=== PATIENT | male | born 1980 | race Caucasian/White ===

== ENCOUNTER 2016-12-27 08:56 | Emergency (ER) | payer SELFPAY ==
[2016-12-27 09:16] VITALS: BP 140/70
[2016-12-27] MEDS ORDERED: cefTRIAXone VIAL(*) 1,000 MG VIAL IM ONE (10:23)
--- NOTE | 2016-12-27 10:23 | UC ---
Skin Complaint HPI - HPI Summary HPI Summary: PT IS TRYING TO COME OFF HEROIN AND IS USING SUBOXONE. IS ON THE WAITING LIST FOR REHAB SO UNABLE TO SECURE RX FOR SUBOXINE SO BUYS IT ON THE STREET. DID NOT HAVE ENOUGH FOR AN ALFRED DOSE SO INJECTED IN LEFT ARM 2 DAYS AGO. THAT NIGHT NOTICED LEFT AC REDNESS, SWELLING AND TENDERNESS. GETTING WORSE. NO FEVER. PAIN WITH ARM FLEXION. - History of Current Complaint Chief Complaint: UCWounds Time Seen by Provider: 12/27/16 09:55 Stated Complaint: INFECTION IN LT ARM Hx Obtained From: Patient Onset/Duration: Sudden Onset, Lasting Days, Still Present Timing: Constant Onset Severity: Moderate Current Severity: Moderate Pain Intensity: 8 Pain Scale Used: 0-10 Numeric Location: Discrete - LEFT AC FOSSA Character: Swelling, Pain, Redness, Raised Aggravating: Touch Alleviating: Nothing Associated Signs & Symptoms: Positive: Tenderness, Red Streaks. Negative: Fever , Drainage - Allergy/Home Medications Allergies/Adverse Reactions: Allergies Allergy/AdvReac Type Severity Reaction Status Date / Time No Known Allergies Allergy Verified 12/27/16 09:16 Home Medications: Home Medications Buprenorphine HCl-Naloxone HCl [Suboxone 8-2 mg] 4 mg PO DAILY 12/27/16 [ History Confirmed 12/27/16] Review of Systems Constitutional: Negative Skin: Other - ERYTHEMA AND INDURATION LEFT AC FOSSA Respiratory: Negative Cardiovascular: Negative Gastrointestinal: Negative All Other Systems Reviewed And Are Negative: Yes PMH/Surg Hx/FS Hx/Imm Hx Previously Healthy: Yes Endocrine History Of: Denies: Diabetes, Thyroid Disease, Hyperthyroidism, Hypothyroidism, Dyslipidemia Cardiovascular History Of: Denies: Cardiac Disorders, Hypertension, Pacemaker/ICD, Myocardial Infarction , Congestive Heart Failure, Atrial Fibrillation, Deep Vein Thrombosis, Bleeding Disorders Respiratory History Of: Denies: COPD, Asthma, Bronchitis, Pneumonia, Pulmonary Embolism GI/ History Of: Denies: Gastroesophageal Reflux, Ulcer, Gastrointestinal Bleed, Gall Bladder Disease, Kidney Stones, Diverticulitis, Renal Disease, Urosepsis Neurological History Of: Denies: TIA, CVA, Dementia, Seizures, Migraine Psychological History Of: Denies: Anxiety, Depression, Bipolar Disorder, Schizophrenia, Post Traumatic Stress Disorder Cancer History Of: Denies: Lung Cancer, Colorectal Cancer, Breast Cancer, Prostate Cancer, Cervical Cancer Other History Of: Negative For: HIV, Hepatitis B, Hepatitis C, Anticoagulant Therapy - Surgical History Surgical History: Yes Surgery Procedure, Year, and Place: 1999 - surgery on R small finger; Left arm absess wash out. - Family History Known Family History: Positive: Hypertension Negative: Cardiac Disease, Diabetes - Social History Alcohol Use: None Alcohol Amount: No ETOH since approx 2014 Substance Use Type: Heroin, Other Substance Use Comment - Amount & Last Used: IVDU; Suboxone only at this time Smoking Status (MU): Heavy Every Day Tobacco Smoker Type: Cigarettes Amount Used/How Often: 1/2 Household Exposure Type: Cigarettes - Immunization History Most Recent Influenza Vaccination: n/a Most Recent Tetanus Shot: unknown Most Recent Pneumonia Vaccination: none Physical Exam Triage Information Reviewed: Yes Appearance: Well-Appearing, No Pain Distress, Well-Nourished Vital Signs: Initial Vital Signs Temp 97.2 F 12/27/16 09:07 Pulse 85 12/27/16 09:07 Resp 16 12/27/16 09:07 BP 140/70 12/27/16 09:07 Pulse Ox 99 12/27/16 09:07 Vital Signs Reviewed: Yes Eyes: Positive: Conjunctiva Clear ENT: Positive: Hearing grossly normal Neck: Positive: Supple Respiratory: Positive: No respiratory distress, No accessory muscle use Cardiovascular: Positive: Pulses Normal Abdomen Description: Positive: Soft Musculoskeletal: Positive: No Edema Neurological: Positive: Alert Psychological: Positive: Age Appropriate Behavior Skin: Positive: Other - 7CM X 13CM AREA OF ERYTHEMA WITH 6CM X 3CM AREA OF INDURATION IN LEFT ANTECUBITAL FOSSA. NO FLUCTUANCE. MILDLY TENDER Course/Dx - Course Course Of Treatment: PT DECLINES ER TRANSFER. WANTS TO TRY OUTPT TREATMENT FIRST. 1G IM ROCEPHIN AND 2 WEEKS OF BACTRIM. WORK NOTE GIVEN AND ARM PUT IN SLING FOR COMFORT. PT WILL GO TO ER WITHOUT FAIL IF SX NOT IMPROVING OVER NEXT 48 HRS. - Diagnoses Provider Diagnoses: INJECTION SITE ABSCESS - LEFT AC FOSSA Discharge - Discharge Plan Condition: Stable Disposition: HOME Prescriptions: Sulfamethox/Trimethoprim DS* [Bactrim DS 800/160 TAB*] 2 tab PO BID #54 tab Patient Education Materials: Abscess (ED) Forms: *Work Release Referrals: Laureano Vicente, [employer] PROGRAMMER ANALYST [Primary Care Provider] - 3 Days Additional Instructions: YOU HAVE RECEIVED ROCEPHIN 1G IM AND STARTED ON A 2 WEEK COURSE OF BACTRIM. LOW THRESHOLD FOR GOING TO THE ER IF YOU ARE NOT IMPROVING OVER THE NEXT 48 HRS.
[2016-12-27] MEDS ORDERED: Lidocaine 1% MPF* 2 ML VIAL ONE (10:27)
[2016-12-27] MEDS ORDERED: Sulfamethox/Trimethoprim DS 800/160* TAB PO ONE (10:31)
== END 2016-12-27 10:46 | disposition home or self-care (01) ==
LOC: UCEAST 08:56
DX: L02.414 Cutaneous abscess of left upper limb (principal); F11.90 Opioid use, unspecified, uncomplicated; F17.210 Nicotine dependence, cigarettes, uncomplicated
CPT/HCPCS: 96372; 99212; A9270-GY; G0463; J0696

== ENCOUNTER 2018-11-24 12:31 | Emergency (ER) | payer OTHER ==
[2018-11-24] MEDS ORDERED: Aspirin 81 mg CHEW TAB* 81 MG TAB.CHEW PO ONE (12:55)
[2018-11-24] MEDS ORDERED: Al Hydrox/Mg Hydrox/Simet LIQ* 30 ML UDC PO ONE (12:56)
[2018-11-24] MEDS ORDERED: Mupirocin 2% OINT* TUBE TOPICAL ONE (12:56)
[2018-11-24] MEDS ORDERED: Lidocaine 2% VISCOUS* 15 ML UDC PO ONE (12:56)
--- NOTE | 2018-11-24 13:03 | UC ---
Cardiac HPI - HPI Summary HPI Summary: 4 days of worsening sob, swelling, left anterior chest pain--- - History of Current Complaint Chief Complaint: UCChestPain Stated Complaint: CHEST PAIN Time Seen by Provider: 11/24/18 12:40 Hx Obtained From: Patient Onset/Duration: Sudden Onset, Lasting Days - 4, Still Present Timing: Constant Pain Intensity: 3 Chest Pain Location: Discrete at:, Lower Sternal, Left Lateral Character: Dull/Aching, Burning Aggravating Factor(s): Other - social stress Alleviating Factor(s): Rest Associated Signs & Symptoms: Positive: Chest Pain, Anxiety, Recent Stress, SOB, Swelling, Diaphoresis - Allergy/Home Medications Allergies/Adverse Reactions: Allergies Allergy/AdvReac Type Severity Reaction Status Date / Time No Known Allergies Allergy Verified 11/24/18 12:42 Home Medications: Home Medications ALPRAZolam [Alprazolam] 0.5 mg PO DAILY 11/24/18 [History Confirmed 11/24/18] Gabapentin 1 tab PO DAILY 11/24/18 [History Confirmed 11/24/18] Sertraline* [Zoloft*] 100 mg PO DAILY 11/24/18 [History Confirmed 11/24/18] PMH/Surg Hx/FS Hx/Imm Hx Previously Healthy: No - opiate abuse disorder in sustained remission with MAT Psychological History: Anxiety, Depression Other History Of: Negative For: HIV, Hepatitis B, Hepatitis C, Anticoagulant Therapy - Surgical History Surgical History: Yes Surgery Procedure, Year, and Place: 1999 - surgery on R small finger; Left arm absess wash out. - Family History Known Family History: Positive: Hypertension Negative: Cardiac Disease, Diabetes - Social History Occupation: Disabled Lives: With Family - is homeless living in hotel/correction with his 3 kids Alcohol Use: None Alcohol Amount: No ETOH since 2014 Substance Use Type: Heroin Substance Use Comment - Amount & Last Used: IVDU; Suboxone only at this time Smoking Status (MU): Heavy Every Day Tobacco Smoker Type: Cigarettes Amount Used/How Often: 1/2 Household Exposure Type: Cigarettes - Immunization History Most Recent Influenza Vaccination: n/a Most Recent Tetanus Shot: unknown Most Recent Pneumonia Vaccination: none Review of Systems All Other Systems Reviewed And Are Negative: Yes Constitutional: Positive: Negative Skin: Positive: Negative Eyes: Positive: Negative ENT: Positive: Negative Respiratory: Positive: Shortness Of Breath Cardiovascular: Positive: Chest Pain Gastrointestinal: Positive: Negative Genitourinary: Positive: Negative Motor: Positive: Negative Neurovascular: Positive: Negative Musculoskeletal: Positive: Edema Neurological: Positive: Negative Psychological: Positive: Negative Is Patient Immunocompromised?: No Physical Exam Triage Information Reviewed: Yes Appearance: Well-Nourished, Ill-Appearing - chnoic ly poor care, Pain Distress Vital Signs: Initial Vital Signs Temp 98 F 11/24/18 12:39 Pulse 90 11/24/18 12:39 Resp 20 11/24/18 12:39 BP 138/69 11/24/18 12:39 Pulse Ox 95 11/24/18 12:39 Vital Signs Reviewed: Yes Eye Exam: Normal Eyes: Positive: Conjunctiva Clear ENT Exam: Normal ENT: Negative: Nasal congestion, Trismus, Muffled voice, Hoarse voice Dental: Positive: Gross Decay/Caries @ Neck exam: Normal Neck: Positive: Supple, Nontender Respiratory Exam: Normal Respiratory: Positive: Chest non-tender, Lungs clear, Normal breath sounds, No respiratory distress, No accessory muscle use Cardiovascular Exam: Normal Cardiovascular: Positive: RRR, No Murmur, Pulses Normal, Brisk Capillary Refill Abdominal Exam: Normal Abdomen Description: Positive: Nontender, No Organomegaly, Soft. Negative: CVA Tenderness (R), CVA Tenderness (L) Bowel Sounds: Positive: Present Musculoskeletal Exam: Other Musculoskeletal: Positive: Strength Intact, ROM Intact, Edema @ - hands and feet Neurological Exam: Normal Neurological: Positive: Alert, Muscle Tone Normal Psychological Exam: Normal Skin Exam: Other Skin: Positive: Other - impetigo appearing infection on abdomen Diagnostics - EKG Cardiac Rhythm: Sinus: Normal Ectopy: None ST Segment: Non-Specific - t wave inversion V3 EKG Comparison: No Significant Change - Assessment/Plan Course Of Treatment: saline lock, asa, gi cocktail, bactroban dental referral list-to hospital by EMS for further assessment - Clinical Impression Provider Diagnosis: Chest pain in adult, Impetigo any site, Dental abscess - Physician Notifications Time Discussed With Above Provider: 13:15 Dixon lim Instructed by Provider To: Transfer Discharge - Sign-Out/Discharge Documenting (check all that apply): Patient Departure All imaging exams completed and their final reports reviewed: No Studies - Discharge Plan Condition: Fair Disposition: [facility] Referrals: Laureano Vicente, [employer] [Primary Care Provider] - - Billing Disposition and Condition Condition: FAIR Disposition: Trans Higher Lvl of Care Fac - Attestation Statements Provider Attestation: I was available for consult. This patient was seen by the MAYRA. The patient was not presented to, seen by, or examined by me. -Herson
[2018-11-24 13:11] VITALS: BP 146/84
== END 2018-11-24 13:15 | disposition short-term general hospital (02) ==
LOC: UCEAST 12:31
DX: R07.9 Chest pain, unspecified (principal); L01.00 Impetigo, unspecified; K04.7 Periapical abscess without sinus; F17.210 Nicotine dependence, cigarettes, uncomplicated
CPT/HCPCS: 93005; 99213; A9270-GY; G0463

== ENCOUNTER 2019-06-29 13:20 | Emergency (ER) | payer OTHER ==
[2019-06-29 13:28] VITALS: BP 132/79
--- NOTE | 2019-06-29 14:08 | ED ---
Skin Complaint - HPI Summary HPI Summary: This patient is a 39 year old M presenting to [facility] with a chief complaint of rashes over arms and near groin since a day ago. Pts brother also has rashes all over his body. Pt used his brothers sweater recently and that is when the rashes began to appear. Per triage, the patient rates the pain 2/10 in severity. Reports rash to groin, arms, face. Patient denies burning during urination/penile discharge. - History of Current Complaint Chief Complaint: EDRashSkinAbscess Time Seen by Provider: 06/29/19 13:52 Stated Complaint: RASH Hx Obtained From: Patient Onset/Duration: Started Days Ago, Still Present Skin Exposure Onset/Duration: Days Ago Timing: Constant Onset Severity: Mild Current Severity: Mild Pain Intensity: 2 Pain Scale Used: 0-10 Numeric Skin Location: Diffuse Character: Redness Aggravating Symptom(s): Nothing Alleviating Symptom(s): Nothing Associated Signs & Symptoms: Rash Related History: Possible Reaction to: Environmental Exposure - Allergy/Home Medications Allergies/Adverse Reactions: Allergies Allergy/AdvReac Type Severity Reaction Status Date / Time No Known Allergies Allergy Verified 06/29/19 13:28 PMH/Surg Hx/FS Hx/Imm Hx Endocrine/Hematology History: Denies: Hx Anticoagulant Therapy, Hx Diabetes, Hx Thyroid Disease Cardiovascular History: Denies: Hx Congestive Heart Failure, Hx Deep Vein Thrombosis, Hx Hypertension , Hx Myocardial Infarction, Hx Pacemaker/ICD Respiratory History: Denies: Hx Asthma, Hx Chronic Obstructive Pulmonary Disease (COPD), Hx Lung Cancer, Hx Pneumonia, Hx Pulmonary Embolism GI History: Denies: Hx Gall Bladder Disease, Hx Gastrointestinal Bleed, Hx Ulcer, Hx Urosepsis History: Denies: Hx Kidney Stones, Hx Renal Disease Neurological History: Denies: Hx Dementia, Hx Migraine, Hx Seizures, Hx Transient Ischemic Attacks (TIA) Psychiatric History: Reports: Hx Substance Abuse - opiates Denies: Hx Anxiety, Hx Depression, Hx Schizophrenia, Hx Bipolar Disorder - Surgical History Surgery Procedure, Year, and Place: 1999 - surgery on R small finger; Left arm absess wash out. Infectious Disease History: No Infectious Disease History: Denies: Hx of Known/Suspected MRSA, Traveled Outside the [place] in Last 30 Days - Family History Known Family History: Positive: Hypertension Negative: Cardiac Disease, Diabetes - Social History Alcohol Use: None Alcohol Amount: No ETOH since approx 2014 Hx Substance Use: Yes Substance Use Type: Reports: Cocaine, Heroin Substance Use Comment - Amount & Last Used: IVDU; Suboxone only at this time Hx Tobacco Use: Yes Smoking Status (MU): Heavy Every Day Tobacco Smoker Type: Cigarettes Amount Used/How Often: 1/2 Review of Systems Negative: burning, dysuria, discharge, pain Positive: Rash All Other Systems Reviewed And Are Negative: Yes Physical Exam - Summary Physical Exam Summary: General: Well appearing, no distress Cardiovascular: Skin is well perfused Pulmonary: No respiratory distress, no tachypnea Abdomen: Non-distended Skin: Warm, Dry, Pruritic rash with small excoriated papules of the forearms, and left groin MSK: no edema Psych: Normal affect Neuro: A&Ox3 Triage Information Reviewed: Yes Vital Signs On Initial Exam: Initial Vitals Temp Pulse Resp BP Pulse Ox 97.8 F 80 16 132/79 96 06/29/19 13:22 06/29/19 13:22 06/29/19 13:22 06/29/19 13:22 06/29/19 13:22 Vital Signs Reviewed: Yes Procedures - Sedation Patient Received Moderate/Deep Sedation with Procedure: No Diagnostics - Vital Signs Vital Signs Temp Pulse Resp BP Pulse Ox 06/29/19 13:22 97.8 F 80 16 132/79 96 - Laboratory Lab Statement: Any lab studies that have been ordered have been reviewed, and results considered in the medical decision making process. Course/Dx - Course Course Of Treatment: 39 y/o male p/w rash c/w scabies. Given permethrin, advised to wash and dry bedding and clothes on high heat. - Diagnoses Provider Diagnoses: Scabies Discharge ED - Sign-Out/Discharge Documenting (check all that apply): Patient Departure - Discharge - Discharge Plan Condition: Stable Disposition: HOME Prescriptions: Permethrin 5% CREAM* 1 applic TOPICAL SEE INSTRUCTIONS #1 tube Permethrin 5% CREAM* 1 applic TOPICAL SEE INSTRUCTIONS #1 tube Patient Education Materials: Scabies (ED) Referrals: Laureano Vicente, [employer] [Primary Care Provider] - Additional Instructions: Scabies: Thoroughly massage cream (30 g for average adult) from head to soles of feet; leave on for 8 to 14 hours before removing (shower or bath); for infants and the elderly, also apply on the hairline, neck, scalp, synagogue, and forehead; may repeat if living mites are observed 14 days after first treatment ; one application is generally curative. In some cases, household members and close contacts of a person with symptoms need treatment for scabies, even if there are no symptoms, to avoid a repeating cycle of infection. A healthcare provider can help to decide if this is necessary, depending upon the individual situation. Although scabies is less frequently spread by touching the clothing or bedsheets of an infected person, it is still a good idea to wash or isolate any clothing, bedding, towels, pajamas, underwear, or stuffed animals that the person has touched within three days before treatment. It is not usually necessary to wash other items. Reasonable options for eliminating mites from these items include placing them in plastic bags for at least three days, machine washing and then ironing or drying in an electric dryer on the hot setting, or dry cleaning. https://[email or web address]/contents/qodgeuq-xmzsza-qkz-basics?search=scabies& gtqabDds=1349&source=see_link#H9 - Billing Disposition and Condition Condition: STABLE Disposition: Home - Attestation Statements Document Initiated by Lai: Yes Documenting Scribe: Flavia Sanchez Provider For Whom Lai is Documenting (Include Credential): Danelle Abarca MD Scribe Attestation: Flavia Miner, scribed for Danelle Abarca MD on 06/29/19 at 1558. Scribe Documentation Reviewed: Yes Provider Attestation: The documentation as recorded by the Flavia seymour accurately reflects the service I personally performed and the decisions made by , Danelle Abarca MD Status of Scribe Document: Viewed
== END 2019-06-29 14:14 | disposition home or self-care (01) ==
LOC: ED 13:20
DX: B86 Scabies (principal); F17.210 Nicotine dependence, cigarettes, uncomplicated
CPT/HCPCS: 99282